=== PATIENT | female | born 1950 | race Caucasian/White ===

== ENCOUNTER → 2017-12-23 12:39 | Outpatient (CLI) | payer MEDICARE, OTHER, SELFPAY ==
--- NOTE | 2017-12-23 12:42 | HPBI_ITS ---
MAMMOGRAPHY - UNILATERAL SCREENING: RIGHT BREAST REASON FOR EXAM: Female, 67 years old. Routine annual screening examination (unilateral). PERTINENT HISTORY: Personal history of breast cancer. Prior left mastectomy with radiation and chemotherapy. TECHNIQUE: Digital unilateral breast peter (3D mammographic acquisition) in the CC and MLO projections. 2-D mediolateral oblique (MLO) and craniocaudad (CC) views of both breasts were obtained. CAD: Full Field Digital Mammography with Computer Added Detection was performed. COMPARISON: Comparison is made with prior study dated October 29, 2016 and September 20, 2015. FINDINGS: Breast Composition: There are scattered areas of fibroglandular density. There are no dominant masses or suspicious calcifications. No other significant abnormalities are identified. There has been no significant change since the prior study. [facility]/UNILAT RT SCRN W/CAD IMPRESSION: Stable unilateral screening mammogram. Yearly follow-up mammogram recommended. (A) ASSESSMENT CATEGORY: BIRADS Category 1: Negative. A letter regarding these results will be sent to the patient by the facility within 30 days. Approximately 10% of breast cancers are not detected by mammography. A normal mammogram should not delay biopsy of a clinically suspicious abnormality. [id number] Electronically Signed: Hakeem Garcia MD at 16:01 EDT Tel [phone], Service support ,
--- NOTE | 2017-12-23 12:45 | HPBD_ITS ---
STUDY: DUAL ENERGY X-RAY ABSORPTIOMETRY / DXA REASON FOR EXAM: Female, 67 years old. The patient is postmenopausal. History of breast cancer. Loss of height of 2 1/2 inches. TECHNIQUE: Bone Mineral Density (BMD) measurements of lumbar spine and bilateral hips were obtained. COMPARISON: Comparison is made with prior examination dated August 28, 2014. FINDINGS: Lumbar Spine (L1-L4): g/cm2 (0.926) / T-score (-2.0) / Z-score (-0.4) Findings are suggestive of osteopenia with a moderate fracture risk. Left Femur Total: g/cm2 (0.826) / T-score (-1.4) / Z-score (-0.2) Left Femoral Neck: g/cm2 (0.803) / T-score (-1.7) / Z-score (-0.2) Right Femur Total: g/cm2 (0.845) / T-score (-1.3) / Z-score (0.0) Right Femoral Neck: g/cm2 (0.913) / T-score (-0.9) / Z-score (0.6) The T-Scores on the most recent prior examination were: Lumbar Spine (L1-L4): There has been worsening of bone density since the previous examination. Left Femur Total: which represents an improvement of 0.7%. Right Femur Total: which represents an improvement of 0.5%. [facility]/Dexa Bone Density Study (HP) IMPRESSION: The patient is considered osteopenic as outlined below according to World Kit Organization (WHO) criteria with a moderate fracture risk. There has been improvement of bone density since the previous examination. Reference Information: The T-score is the number of standard deviations above or below the standard which is normal for young adults at their peak bone mineral density. The World Health Organization (WHO) interprets the T-scores as follows: Above -1 Normal bone density Between -1 and -2.5 Osteopenia Equal to / or below -2.5 Osteoporosis As a practical clinical guideline, osteopenia may be graded as follows: Mild -1 through -1.5 Moderate -1.6 through -2.0 Severe -2.1 through -2.4 The Z-score is the number of standard deviations above or below age-matched controls. A Z-score of less than -1.5 would be considered abnormal. References: 1. NIH Osteoporosis and Related Bone Diseases http://www.osteo.org 2. International Society for Clinical Densitometry http://www.iscd.org 3. National Osteoporosis Foundation http://www.nof.org Electronically Signed: Hakeem Garcia MD at 13:23 EDT Tel [phone], Service support ,
== END ==
PROVIDERS: Family Provider Student in an Organized Health Care Education/Training Program; PCP Student in an Organized Health Care Education/Training Program; Visit Provider Student in an Organized Health Care Education/Training Program
DX: M85.80 Other specified disorders of bone density and structure, unspecified site (principal); M89.9 Disorder of bone, unspecified; M94.9 Disorder of cartilage, unspecified; Z12.31 Encounter for screening mammogram for malignant neoplasm of breast
CPT/HCPCS: 77061; 77067; 77080; G0279

== ENCOUNTER → 2018-04-04 13:13 | Outpatient (CLI) | payer MEDICARE, OTHER, SELFPAY | PROVIDERS: Family Provider Student in an Organized Health Care Education/Training Program; PCP Student in an Organized Health Care Education/Training Program; Visit Provider Nurse Practitioner Adult Health | DX: R30.0 Dysuria (principal) | CPT/HCPCS: 87077; 87086; 87088; 87186 ==

== ENCOUNTER → 2019-01-13 13:08 | Outpatient (CLI) | payer MEDICARE, OTHER, SELFPAY ==
--- NOTE | 2019-01-13 13:13 | BI_ITS ---
MAMMOGRAPHY - UNILATERAL DIAGNOSTIC: RIGHT BREAST REASON FOR EXAM: Female, 68 years old. Prior left mastectomy. PERTINENT HISTORY: Personal history of breast cancer. TECHNIQUE: Digital unilateral breast peter (3D mammographic acquisition) in the CC and MLO projections. 2-D mediolateral oblique (MLO) and craniocaudad (CC) views of both breasts were obtained. CAD: Full Field Digital Mammography with Computer Added Detection was performed. COMPARISON: Comparison is made with prior study December 23, 2017 and October 29 FINDINGS: Breast Composition: There are scattered areas of fibroglandular density. There are no dominant masses or suspicious calcifications. No other significant abnormalities are identified. There has been no significant change since the prior study. BI/UNILAT RT SCRN W/CAD IMPRESSION: Stable unilateral diagnostic mammogram. One year follow-up mammogram recommended. (A) ASSESSMENT CATEGORY: BIRADS Category 1: Negative. A letter regarding these results will be sent to the patient by the facility within 30 days. Approximately 10% of breast cancers are not detected by mammography. A normal mammogram should not delay biopsy of a clinically suspicious abnormality. Electronically Signed: Hakeem Garcia, at 15:49 EDT , Service support ,
== END ==
PROVIDERS: Family Provider Student in an Organized Health Care Education/Training Program; PCP Student in an Organized Health Care Education/Training Program; Referring Provider Student in an Organized Health Care Education/Training Program; Visit Provider Student in an Organized Health Care Education/Training Program
DX: Z12.31 Encounter for screening mammogram for malignant neoplasm of breast (principal)
CPT/HCPCS: 77061; 77067; G0279

== ENCOUNTER → 2019-02-09 | Outpatient (CLI) | payer MEDICARE, OTHER, SELFPAY | END | disposition home or self-care (01) | LOC: LABSPEC 17:07 | PROVIDERS: Family Provider Student in an Organized Health Care Education/Training Program; PCP Student in an Organized Health Care Education/Training Program; Referring Provider Nurse Practitioner Adult Health; Visit Provider Nurse Practitioner Adult Health | DX: R82.998 Other abnormal findings in urine (principal) | CPT/HCPCS: 87077; 87086; 87088; 87186 ==

== ENCOUNTER → 2020-06-07 11:39 | Outpatient (CLI) | payer MEDICARE, OTHER, SELFPAY ==
--- NOTE | 2020-06-07 11:50 | BI_ITS ---
MAMMOGRAPHY - UNILATERAL SCREENING: RIGHT BREAST REASON FOR EXAM: Female, 70 years old. Routine annual screening examination (unilateral). PERTINENT HISTORY: Personal history of breast cancer. Prior left mastectomy. Prior right stereotactic breast biopsy. TECHNIQUE: Digital unilateral breast chapo (3D mammographic acquisition) in the CC and MLO projections. 2-D mediolateral oblique (MLO) and craniocaudad (CC) views of both breasts were obtained. CAD: Full Field Digital Mammography with Computer Added Detection was performed. COMPARISON: Comparison is made with prior study dated 01/13/2019 and 12/23/2017. FINDINGS: Breast Composition: There are scattered areas of fibroglandular density. There are no dominant masses or suspicious calcifications. No other significant abnormalities are identified. There has been no significant change since the prior study. BI/SCREEN MAMM (CAD) W/CHAPO UNI R IMPRESSION: Stable unilateral screening mammogram. Yearly follow-up mammogram recommended. (A) ASSESSMENT CATEGORY: BIRADS Category 1: Negative. A letter regarding these results will be sent to the patient by the facility within 30 days. Approximately 10% of breast cancers are not detected by mammography. A normal mammogram should not delay biopsy of a clinically suspicious abnormality. [id number] Electronically Signed: Hakeem Garcia, at 12:59 EDT , Service support ,
== END ==
PROVIDERS: PCP Student in an Organized Health Care Education/Training Program; Referring Provider Student in an Organized Health Care Education/Training Program; Visit Provider Student in an Organized Health Care Education/Training Program
DX: Z12.31 Encounter for screening mammogram for malignant neoplasm of breast (principal)
CPT/HCPCS: 77063; 77067

== ENCOUNTER 2020-10-08 11:30 | Outpatient (RCR) | payer MEDICARE, OTHER, SELFPAY ==
--- NOTE | 2020-08-27 11:55 | HP.PTEVAL ---
Patient's Visit Information HOLDEN WHITE is a 70 year old F referred to Physical Therapy by Dr. Shashi Serrano MD with a diagnosis of Unilateral primary L knee OA. Date of Evaluation: 08/27/20 Physical Therapist: Greg Liu DPT - Visit Plan Frequency: 1x/Week Duration: 6 Weeks Plan: Work on inc L knee ROM to WNL. LLE strengthening focusing on L knee. Work on stair negotiation as anastasia by pt. - Subjective Pt presents this date for prehab eval of L knee OA. Has been dealing w/ L john ahn since 2003 when she had it arthroscopically cleaned out. Started receiving cortisone shots about 2-3 years ago and believed they helped reduce pain initially but does not seem to be helping much anymore. Pain is worst when going down steps and kneeling. Sitting and rest makes the pain better. Pain does not wake her up at night. States she also has a history of back issues. Tries to be active around the house but is limited by her pain. Has one flight of stairs to her basement w/ BHR that she would like to be able to negotiate, would also like to return to walking regularly. Has 2 BEBETO with RHR. Does not have a follow-up scheduled with her doctor, is supposed to try PT first and then schedule with her doctor. - Pain L knee Pain Intensity (Out of 10): 2 Pain Intensity Range: 2, 8 - Objective POSTURE: Forward head, rounded shoulders, inc thoracic kyphosis. PALPATION: Tenderness noted generally along L knee joint line. ROM: L knee 0-6-118, R knee 0-2-125 deg. Firm end feels. L hip flex 105, ext 12 deg. R hip flex 102, ext 4 deg. MMT: L knee flex 37.1 lbs, ext 34.7 lbs. R knee flex 35.0 lbs, ext 45.2 lbs. L hip flex 36.8 lbs, ext 24.5 lbs. R hip flex 32.9 lbs, ext 29.3 lbs. NEURO: Sensation to light touch intact. DTRs not tested. GAIT: Displays dec B step length and forward trunk. No other deviations noted. Negotiated 1 flight of stairs utilizing R HR and reciprocal pattern. Notable weight shifting off of LLE when descending. Reported not having pain with stair negotiation this date, but states it usually hurts. TUG time: 10.8 sec. EDEMA: Midpatellar girth 16.5 inches. 6 inches suprapatellar girth 20 inches. WOMAC score: 47/96 - Goals Goal 1:: LTG: Pt to be I w/ HEP. Goal Time Frame: 4-6 Weeks Goal 2:: LTG: Pt will display inc L knee ROM to 0-0-120. Goal Time Frame: 4-6 Weeks Goal 3:: STG: Pt will report having a dec in pain while descending stairs at home from 05/20 to 4-6. Goal Time Frame: 2-4 Weeks Goal 4:: LTG: Pt will report having a dec in pain while descending stairs at home from 05/20 to 0-11/20. Goal Time Frame: 4-6 Weeks Goal 5:: LTG: Pt will display inc L knee strength equal to R knee. Goal Time Frame: 4-6 Weeks Goal 6:: STG: Pt will display inc L knee strength by 5 lbs as measured by dynamometer. Goal Time Frame: 2-4 Weeks - Rehabilitation Potential Physical Therapy Diagnosis: S/s consistent w/ L knee OA prehab. Pt displays inc L knee pain, dec L knee ROM, dec L knee strength, and dec ability to safely perform gait activities. PT intervention indicated to address stated deficits and inc L knee ROM and strength, inc ability to safely perform gait activities, and facilitate a dec in pain status. Rehabilitation Potential: Good - Anticipated Interventions Patient/Client Instruction: Educate patient on: Condition, Plan of Care, Risk Factors, Benefits of Fitness Program For the Purpose of:: To improve safety, To improve health and function, To foster healthy habits, To improve self management, To prevent re-injury Therapeutic Exercise to Include: Strength training, Endurance training, Balance training, Flexibilty training, Gait and locomotor training, Active ROM For the Purpose of:: To decrease pain, To decrease swelling/inflammation, To increase ROM, To improve muscle performance and motor function, To increase tolerance to activity/condition/position, To improve ability of physical actions for home/community/work/leisure, To improve gait and locomotor functions, To increase flexibility/ROM IF ES: Yes Cryotherapy (ice pack, ice massage): Yes Thermo therapy (hot pack): Yes Ultrasound (thermal/non thermal): Yes For the Purpose of:: To decrease pain, To decrease swelling/inflammation Thank you for the opportunity to evaluate your patient. For Medicare and Medicare HMO plans, please review the plan of care and approve it. It will need to be FAXED BACK to us at [phone] for Medicare purposes. For Medicare only, by signing this I certify the plan of care. Please let me know if there are questions or concerns regarding this plan of care. Physician Signature: Date:
== END 2020-10-08 19:00 | disposition home or self-care (01) ==
LOC: PT 11:30
PROVIDERS: PCP Student in an Organized Health Care Education/Training Program; Referring Provider Orthopaedic Surgery; Visit Provider Orthopaedic Surgery
DX: M17.12 Unilateral primary osteoarthritis, left knee (principal)
CPT/HCPCS: 97110; 97161

== ENCOUNTER 2021-05-27 11:30 | Outpatient (RCR) | payer MEDICARE, OTHER, SELFPAY ==
--- NOTE | 2021-02-28 15:43 | HP.PTEVAL ---
Patient's Visit Information HOLDEN WHITE is a 70 year old F referred to Physical Therapy by Dr. Shashi Serrano MD with a diagnosis of L TKA. Date of Evaluation: 02/28/21 Physical Therapist: Colt Bello, PT, ATC - Visit Plan Frequency: 2-3x /Week Duration: 4-6 Weeks Plan: L knee PROM/mobs, stretching and strengthening, balance and proprio, core stab, nustep, and HEP - Subjective DOS: 02/21/21. L TKA. Pt reports she had L knee pain for 14-15 years. Pt reports she had cortisone injections throughout that span to aid with the pain. Pt reports her quality of life became poor as she was unable to negotiate stairs or walk for a long time. Pt reports she is still in a lot of pain, but it is getting better. Pt reports sleep difficulty secondary to pain. Pt reports her toes get tingly every now and then, but no other tingling or numbness in L LE. Pt reports she is retired at this time. Pt reports she likes to go on walks, but cant at this time secondary to pain and weakness. Pt reports she has been performing HEP since surgery. 6/10 pain at rest and at worst - Pain L TKA Pain Intensity (Out of 10): 6 Pain Intensity Range: 6 - Objective Neuro: B LE sensation WNL to light touch. ROM: Lknee 0-12-85, R knee 0-117. MMT: R knee flex= 24, ext= 19; L knee flex= 11.9, ext= 7.5. Gait: Pt ambulates slow cadance and WW. TU - Goals Goal 1:: Decrease L knee pain x 50% to aid with sleep. Goal Time Frame: 4-6 Weeks Goal 2:: Increase L knee strength x 1 grade to aid with stair negotiation Goal Time Frame: 4-6 Weeks Goal 3:: Increase L knee ROM x 25 degrees to aid with restoring a more normalised gait pattern Goal Time Frame: 4-6 Weeks Goal 4:: I with HEP Goal Time Frame: 4-6 Weeks - Rehabilitation Potential Physical Therapy Diagnosis: L knee pain, weakness, and limited ROM secondary to L TKA Rehabilitation Potential: Good - Anticipated Interventions Patient/Client Instruction: Educate patient on: Condition, Plan of Care For the Purpose of:: To improve self management Therapeutic Exercise to Include: Strength training, Endurance training, Balance training, Flexibilty training, Gait and locomotor training, Passive ROM, Active ROM, Dynamic Lumbar Stabilization For the Purpose of:: To decrease pain, To increase ROM, To improve muscle performance and motor function Cryotherapy (ice pack, ice massage): Yes For the Purpose of:: To decrease pain Thank you for the opportunity to evaluate your patient. For Medicare and Medicare HMO plans, please review the plan of care and approve it. It will need to be FAXED BACK to us at [phone] for Medicare purposes. For Medicare only, by signing this I certify the plan of care. Please let me know if there are questions or concerns regarding this plan of care. Physician Signature: Date:
--- NOTE | 2021-05-27 15:05 | HP.PTDCSUM ---
It has been my pleasure to treat HOLDEN WHITE referred by Dr. Shashi Serrano MD, with the diagnosis of L TKA for a total of 21 visit(s). Discharge Date: Please see the following information for a summary of their discharge status. Subjective: Pt reports she still has difficulty with donning socks and stair negotiation L TKA Pain Intensity (Out of 10): 0 % Improvement: 95 Objective/Function: L knee pain: 0/10. L knee ROM: 0-5-105. L knee MMT: L knee flex= 22 #F, ext= 23#F. TUG 11.23. I with HEP. Rx goals achieved Goal 1:: Decrease L knee pain x 50% to aid with sleep. Goal Progress: Goal Met Goal 2:: Increase L knee strength x 1 grade to aid with stair negotiation Goal Progress: Goal Met Goal 3:: Increase L knee ROM x 25 degrees to aid with restoring a more normalised gait pattern Goal Progress: Goal Met Goal 4:: I with HEP Goal Progress: Goal Met Plan: Discharge If there are questions or concerns regarding this patient's physical therapy, please feel free to call me at [phone]. Thank you for the referral of this patient. Sincerely, Colt Bello, PT, ATC Balance/Gait/Functional tests - Balance/Special Test Scores Lower Extremity Functional Score: 54
== END 2021-05-27 19:00 | disposition home or self-care (01) ==
LOC: PT 11:30
PROVIDERS: PCP Student in an Organized Health Care Education/Training Program; Referring Provider Orthopaedic Surgery; Visit Provider Orthopaedic Surgery
DX: M17.12 Unilateral primary osteoarthritis, left knee (principal)
CPT/HCPCS: 97110; 97140; 97161; 97164

== ENCOUNTER → 2021-06-24 11:09 | Outpatient (CLI) | payer MEDICARE, OTHER, SELFPAY ==
--- NOTE | 2021-06-24 11:11 | BI_ITS ---
MAMMOGRAPHY - UNILATERAL SCREENING: RIGHT BREAST REASON FOR EXAM: Female, 71 years old. Routine annual screening examination (unilateral). PERTINENT HISTORY: Personal history of breast cancer. Prior left mastectomy. TECHNIQUE: Digital unilateral breast chapo (3D mammographic acquisition) in the CC and MLO projections. 2-D mediolateral oblique (MLO) and craniocaudad (CC) views of both breasts were obtained. CAD: Full Field Digital Mammography with Computer Added Detection was performed. COMPARISON: Comparison is made with prior examination 06/07/2020 and 01/13/2019. FINDINGS: Breast Composition: There are scattered areas of fibroglandular density. There are no dominant masses or suspicious calcifications. No other significant abnormalities are identified. There has been no significant change since the prior study. BI/SCREEN MAMM (CAD) W/CHAPO UNI R IMPRESSION: Stable unilateral screening mammogram. Yearly follow-up mammogram recommended. (A) ASSESSMENT CATEGORY: BIRADS Category 1: Negative. A letter regarding these results will be sent to the patient by the facility within 30 days. Approximately 10% of breast cancers are not detected by mammography. A normal mammogram should not delay biopsy of a clinically suspicious abnormality. [id number] Electronically Signed: Hakeem Garcia MD at 12:55 EDT , Service support ,
== END ==
PROVIDERS: PCP Student in an Organized Health Care Education/Training Program; Referring Provider Student in an Organized Health Care Education/Training Program; Visit Provider Student in an Organized Health Care Education/Training Program
DX: Z12.31 Encounter for screening mammogram for malignant neoplasm of breast (principal)
CPT/HCPCS: 77063; 77067

== ENCOUNTER 2021-08-27 05:44 | Emergency (ER) | payer MEDICARE, OTHER, SELFPAY ==
[2021-08-27 05:45] VITALS: BP 194/103; PULSE 81; RESP 18; TEMP 36.6; O2SAT 98; BMI 33.3
--- NOTE | 2021-08-27 05:54 | EX.ED.DYSGE1 ---
HPI History of Present Illness Chief Complaint: Dizziness Narrative Narrative: 8-year-old female presenting with vertiginous dizziness. She said it started last evening abruptly at about 8 PM while she was working at her craft table. She states it has come in waves over the course of the evening. She describes mild nausea. She has not had any falls. She denies any head injury. She does not have a headache or tinnitus. No visual complaints. PFSH PFSH Home Medications meclizine 25 mg PO BID PRN #30 tab 08/27/21 [Rx Last Taken Unknown] Allergy/AdvReac Type Severity Reaction Status Date / Time nitrofurantoin Allergy Itching Verified 08/27/21 05:45 [From Macrobid] nitrofurantoin Allergy Itching Verified 08/27/21 05:45 macrocrystalline [From Macrobid] ramipril [From Altace] AdvReac Other Verified 08/27/21 05:45 Surgical History Status post left knee replacement Social History Smoking Status: Never smoker ROS ROS ED Constitutional Constitutional ED: Denies chills or fever(s) Eyes Eyes: Reports other Details: Vertiginous dizziness ENT ENT ED: Denies rhinorrhea or sore throat Cardiovascular Cardiovascular: Denies chest pain or palpitations Respiratory/Chest Respiratory/Chest: Denies cough or dyspnea Gastrointestinal Gastrointestinal: Reports nausea; Denies abdominal pain or vomiting Genitourinary Genitourinary ED: Denies dysuria or hematuria Musculoskeletal Musculoskeletal: Denies arthralgias, myalgias or neck pain Integumentary Denies rash Neurologic Neurologic: Denies headache(s) or paresthesias EXAM Physical Exam Const Vital Signs: 08/27/21 05:45 08/27/21 05:49 Temperature 97.8 F Temperature Source Oral Pulse Rate 81 Respiratory Rate 18 Respiratory Effort Normal Respiratory Pattern Normal Blood Pressure 194/103 H Blood Pressure Mean 133 Pulse Ox 98 Oxygen Delivery Method Room Air Positive well nourished General Appearance ED: NAD; Negative for pallor HEENT Reports moist mucous membranes Negative for trauma Eyes PERRL and EOMs intact bilaterally Eyes Narrative: Nystagmus with modified Jm-Hallpike. Vertiginous symptoms reproduced. Resp normal respiratory effort and clear to auscultation bilaterally Cardio regular rate and regular rhythm Neuro oriented x3, CN's II-XII intact bilaterally and no sensory deficits noted Sensorium / Orientation: alert Motor Exam: strength 5/5 throughout Psych mental status grossly normal Skin General Skin Exam: Negative for jaundice or pallor MDM MDM MDM Narrative Medical decision making narrative: Patient is given Phenergan and meclizine. Her symptoms most consistent with benign positional vertigo. Patient will be given meclizine for home. She is given follow-up with ENT. Patient stable for discharge at this time. Impression: 1. Benign positional vertigo Discharge Plan Triage Chief Complaint: Dizziness ED Provider: Shailesh Ramos Dx/Rx/DC Orders Instructions: ED BPV Vertigo Prescriptions: New meclizine 25 mg tablet 25 mg PO BID PRN (Reason: dizziness) Qty: 30 RF: 0 Primary Care Provider: Prashant Wallace Referrals: Zi Beckett MD [STAFF PHYSICIAN] - As Needed Prashant Wallace DO [Primary Care Provider] - Disposition Disposition: Home, Self Care
[2021-08-27] MEDS: proMETHazine 25 MG Tablet PO (05:57)
[2021-08-27] MEDS: Meclizine HCl 25 MG Tablet PO (05:58)
[2021-08-27 06:50] VITALS: BP 175/89; PULSE 88; RESP 16; O2SAT 94
== END 2021-08-27 06:50 | disposition home or self-care (01) ==
LOC: ED 06:35
PROVIDERS: Emergency Provider Student in an Organized Health Care Education/Training Program; PCP Student in an Organized Health Care Education/Training Program
DX: H81.10 Benign paroxysmal vertigo, unspecified ear (principal)
CPT/HCPCS: 99283

== ENCOUNTER → 2022-04-09 | Outpatient (CLI) | payer MEDICARE, OTHER, SELFPAY ==
--- NOTE | 2022-04-09 08:22 | MRI_ITS ---
EXAM: MR Lumbar Spine Without Intravenous Contrast CLINICAL INDICATION: POST LAMINECTOMY SYNDROME TECHNIQUE: Multiplanar and multisequence MR images of the lumbar spine without intravenous contrast. This report was created using [employer] report generation technology. COMPARISON: Lumbar radiograph May 30, 2015 FINDINGS: VERTEBRAE: Unremarkable. Vertebral body heights are preserved. Normal vertebral bodies and posterior elements. Normal alignment. No spondylolisthesis. There is preservation of the normal lumbar lordosis. SPINAL CORD: Unremarkable. Normal position and signal intensity of the conus medullaris. SOFT TISSUES: Unremarkable. DISCS/SPINAL CANAL/NEURAL FORAMINA: L1-2: Disc space narrowing. Disc osteophyte complex and posterior ligamentous redundancy results in mild compression on the thecal sac. Intact neural foramina. Normal spinal canal and lateral recesses. L2-3: Prominent disc space narrowing. Prominent disc protrusion, ligamentous redundancy and facet arthropathy result in moderate spinal stenosis and moderate left and mild right neural foraminal narrowing. L3-4: Prominent disc space narrowing. Vertebral body hypertrophy and facet arthropathy results in severe narrowing of the left foramen. No significant compression of the thecal sac or right neural foramen. Normal spinal canal and lateral recesses. L4-5: Mild disc space narrowing, ligamentous redundancy and facet arthropathy results in moderate spinal stenosis and moderate bilateral neural foraminal narrowing. L5-S1: No significant disc space narrowing or disc herniation. [id number] narrowing of the right neural foramen related to lateral disc bulging and facet arthropathy. Mild narrowing of the left foramen secondary to facet arthropathy. No spinal stenosis. MRI/Spine Lumbar (Routine) IMPRESSION: 1. Multilevel disc degeneration and facet arthropathy. 2. Moderate L2-3 and L4-5 spinal stenosis related to disc protrusion and facet arthropathy. 3. Multilevel neural foraminal narrowing as described. Electronically Signed: Bernard Walker MD at 11:14 EDT ,
== END | disposition home or self-care (01) ==
LOC: MRI 08:04
PROVIDERS: PCP Student in an Organized Health Care Education/Training Program; Visit Provider Anesthesiology Pain Medicine
DX: M96.1 Postlaminectomy syndrome, not elsewhere classified (principal)
CPT/HCPCS: 72148

== ENCOUNTER 2022-06-01 23:54 | Emergency (ER) | payer MEDICARE, OTHER, SELFPAY ==
[2022-06-01 23:55] VITALS: BP 95/67; PULSE 96; RESP 18; TEMP 36.2; O2SAT 94; BMI 32.5
--- NOTE | 2022-06-02 00:25 | EX.ED.DYSGE1 ---
HPI History of Present Illness Chief Complaint: Allergic Reaction Informant: patient Onset/Context/Timing Onset: Today Context: Sudden Onset Timing: Continuous Quality: Pruritic, urticarial Location: Generalized Worsened by: Nothing Relieved by: Nothing Narrative Narrative: Presents with allergic reaction that began tonight. Patient states she has Cipro and Flagyl at home to take in case she starts getting symptoms of diverticulitis. Patient states she felt like she was getting symptoms of her diverticulitis and took a dose of Cipro and Flagyl tonight. Patient states that approximately 15 to 20 minutes after taking the Cipro and Flagyl she started developing itching and hives. Patient denies any difficulty breathing or difficulty swallowing. Patient admits to generalized urticarial rash that is pruritic. Patient states nothing makes it better nothing makes it worse. [facility] Medical History (Updated 06/02/22 @ 02:[address] Dann Cohen DO) Degenerative joint disease (DJD) of lumbar spine Diverticulitis Home Medications meclizine 25 mg tablet 25 mg PO BID PRN dizziness #30 tabs 08/27/21 [Rx Last Taken Unknown] amoxicillin 875 mg-potassium clavulanate 125 mg tablet 875 mg PO Q12H #20 TABLETS 06/02/22 [Rx Last Taken Unknown] prednisone 20 mg tablet 60 mg PO DAILY #15 TABLETS 06/02/22 [Rx Last Taken Unknown] Allergy/AdvReac Type Severity Reaction Status Date / Time nitrofurantoin Allergy Itching Verified 06/01/22 23:59 [From Macrobid] nitrofurantoin Allergy Itching Verified 06/01/22 23:59 macrocrystalline [From Macrobid] ramipril [From Altace] AdvReac Other Verified 06/01/22 23:59 Surgical History Status post left knee replacement Social History Smoking Status: Never smoker ROS ROS ED Constitutional Constitutional ED: Reports chills and subjective; Denies fever(s) Eyes Eyes: Denies blurry vision or change in vision ENT ENT ED: Denies rhinorrhea or sore throat Cardiovascular Cardiovascular: Denies chest pain or palpitations Respiratory/Chest Respiratory/Chest: Denies cough or dyspnea Gastrointestinal Gastrointestinal: Reports nausea; Denies vomiting Genitourinary Genitourinary ED: Denies dysuria or hematuria Musculoskeletal Musculoskeletal: Denies back pain or neck pain Integumentary Reports rash; Denies abscess Neurologic Neurologic: Denies headache(s) or weakness Allergic/Immunologic Allergic/Immunologic ED: Reports urticaria; Denies mouth swelling or tongue swelling EXAM Physical Exam Const Vital Signs: 06/01/22 23:55 06/02/22 02:04 Temperature 97.2 F L Temperature Source Temporal Pulse Rate 96 74 Respiratory Rate 18 17 Blood Pressure 95/67 134/74 H Blood Pressure Mean 76 94 Pulse Ox 94 97 Oxygen Delivery Method Room Air Room Air Positive well nourished and well developed General Appearance ED: well developed and NAD HEENT Reports moist mucous membranes HEENT Narrative: Oral mucosa is pink and moist. Oropharynx is clear. Airway is patent. There is no pharyngeal edema noted. Neck supple and no JVD Resp normal respiratory effort and clear to auscultation bilaterally Cardio regular rate, regular rhythm and no murmurs GI normal to inspection, nondistended, normoactive bowel sounds and non-tender Palpation: soft Extremity normal to inspection General Extremety ED: Negative for edema or tenderness General Extremity: Negative for edema Neuro oriented x3, CN's II-XII intact bilaterally and no sensory deficits noted Sensorium / Orientation: alert Motor Exam: strength 5/5 throughout Psych mental status grossly normal Skin Rashes: rashes noted Generalized patch and macule Generalized coalescing erythematous nontender hives MDM MDM MDM Narrative Medical decision making narrative: Patient was given Solu-Medrol and Benadryl. Patient is feeling better on reevaluation. The urticaria is resolving. Patient had no episodes of throat swelling, difficulty swallowing, or difficulty breathing. Patient was given a prescription for prednisone. Patient was instructed to take Benadryl as needed for any itching. Patient was also given a prescription for Augmentin and was instructed to stop taking the Cipro and Flagyl. Patient was instructed to follow-up with her primary care physician in 5 to 7 days. Patient understood and was agreeable with the plan. All questions were answered. Discharge Plan Triage Chief Complaint: Allergic Reaction ED Provider: Dann Cohen Dx/Rx/DC Orders Clinical Impression: Urticaria due to drug allergy, Diverticulitis Instructions: ED Diverticulitis, ED Hives (Adult) Prescriptions: New amoxicillin-pot clavulanate [amoxicillin-pot clavulanate] 875 MG tablet 875 mg PO Q12H Qty: 20 0RF prednisone 20 MG tablet 60 mg PO DAILY Qty: 15 0RF Discontinued metronidazole 500 mg tablet ciprofloxacin HCl 500 mg tablet No Action meclizine 25 mg tablet 25 mg PO BID PRN (Reason: dizziness) Qty: 30 0RF Primary Care Provider: Prashant Wallace Referrals: Prashant Wallace DO [Primary Care Provider] - 5-7 Days Disposition Disposition: Home, Self Care
[2022-06-02] MEDS: MethylPREDNISolone 125 MG/2 ML Vial 60 MG IV (00:46)
[2022-06-02] MEDS: DiphenhydrAMINE 50 MG/ML Syringe 25 MG IV (00:46)
[2022-06-02 02:04] VITALS: BP 134/74; PULSE 74; RESP 17; O2SAT 97
[2022-06-02 02:44] VITALS: BP 130/73; PULSE 76; RESP 18; O2SAT 96
== END 2022-06-02 02:45 | disposition home or self-care (01) ==
PROVIDERS: Emergency Provider Emergency Medicine; PCP Student in an Organized Health Care Education/Training Program; Visit Provider Emergency Medicine
DX: L50.0 Allergic urticaria (principal); T36.8X5A Adverse effect of other systemic antibiotics, initial encounter; K57.92 Diverticulitis of intestine, part unspecified, without perforation or abscess without bleeding
CPT/HCPCS: 96374; 96375; 99283; A4216

== ENCOUNTER → 2022-07-07 | Outpatient (CLI) | payer MEDICARE, OTHER, SELFPAY ==
--- NOTE | 2022-07-07 10:01 | BI_ITS ---
MAMMOGRAPHY - UNILATERAL SCREENING: RIGHT BREAST REASON FOR EXAM: Female, 72 years old. Routine annual screening examination (unilateral). PERTINENT HISTORY: Personal history of breast cancer. Prior left mastectomy. TECHNIQUE: Digital unilateral breast chapo (3D mammographic acquisition) in the CC and MLO projections. 2-D mediolateral oblique (MLO) and craniocaudad (CC) views of both breasts were obtained. CAD: Full Field Digital Mammography with Computer Added Detection was performed. COMPARISON: Comparison is made with prior study dated 06/24/2021 and 05/30/2020. FINDINGS: Breast Composition: There are scattered areas of fibroglandular density. There are no dominant masses or suspicious calcifications. No other significant abnormalities are identified. There has been no significant change since the prior study. BI/SCREEN MAMM (CAD) W/CHAPO UNI R IMPRESSION: Stable unilateral screening mammogram. Yearly follow-up mammogram recommended. (A) ASSESSMENT CATEGORY: BIRADS Category 2: Benign. A letter regarding these results will be sent to the patient by the facility within 30 days. Approximately 10% of breast cancers are not detected by mammography. A normal mammogram should not delay biopsy of a clinically suspicious abnormality. [id number] Electronically Signed: Hakeem Garcia MD at 11:10 EDT ,
== END | disposition home or self-care (01) ==
LOC: OPBI 09:59
PROVIDERS: PCP Student in an Organized Health Care Education/Training Program; Visit Provider Student in an Organized Health Care Education/Training Program
DX: Z12.31 Encounter for screening mammogram for malignant neoplasm of breast (principal)
CPT/HCPCS: 77063; 77067

== ENCOUNTER → 2023-03-02 | Outpatient (CLI) | payer MEDICARE, OTHER, SELFPAY ==
--- NOTE | 2023-03-02 10:30 | PET_ITS ---
EXAMINATION: FDG PET/CT ? INDICATIONS: 72-year-old female with a history of pulmonary nodularity-mass formation. ? COMPARISON EXAMINATION: None available. ? INDEX LESION SIZE SUV INTERPRETATION Anterior-posterior mediastinum, right upper lobe 10.2 cm, largest 14.1 max Fulfills quantitative criteria for viable neoplasm ? Right periclavicular, retropectoral lymph node basin 49.6 mm, largest 11.3 max Fulfills quantitative criteria for viable neoplasm ? Right peristernal lymph node 8.7 mm 5.4 Fulfills quantitative criteria for viable neoplasm ? Right hemithorax pleural interface 7.9 mm 5.9 Fulfills quantitative criteria for viable neoplasm ? Mid abdominal retroperitoneum 11.8 mm 10.6 Fulfills quantitative criteria for viable neoplasm ? ? TECHNIQUE: Following the intravenous administration of 13.99 mCi of F-18 deoxyglucose via the right antecubital fossa, multiplanar image acquisitions of the head, neck, chest, abdomen and pelvis to the level of the bilateral forefoot, obtained at one-hour post radiopharmaceutical administration contemporaneously interpreted with the current CT of the chest, abdomen and pelvis dated 03/02/2023 via coregistration reveal: ? ? SERUM GLUCOSE LEVEL:? 86 mg/dL? HEIGHT:?? 67 inches WEIGHT:?? 205 pounds ? FINDINGS: ? HEAD/NECK:? There is no evidence of abnormal increased glucose metabolism in the pharyngeal mucosal space, parapharyngeal space, oropharynx, bilateral-lateral and anterior neck, hypopharynx and distribution of the larynx. ? The visualized portion of the cerebral cortical-subcortical structures demonstrate symmetric and preserved glucose metabolism. ? CHEST:? Increased radiopharmaceutical concentration is multifocally apparent in the anterior, middle, and posterior mediastinum and right upper lobe. The calculated maximum standard uptake value is 14.1. The largest metabolic morphologic abnormality exists in the right upper lobe with extension into the middle and anterior mediastinum coalesced in presentation. The maximal axial diameter of the largest metabolic, morphologic abnormality is 10.2 cm. Facilitated FDG is noted in the right periclavicular and retroclavicular regions. The calculated standard uptake value is 11.3. The largest metabolic, morphologic abnormality is 49.6 mm. Facilitated uptake is noted in the right upper anteromedial hemithorax, peristernal in location, with a calculated standard uptake value of 5.4. The maximal axial diameter of the corresponding soft tissue density is 8.7 mm. There is a focus of enhanced tracer uptake noted in the right posterior mid hemithorax at the pleural interface. The calculated standard uptake value is 5.9. The maximal axial diameter of the corresponding soft tissue density is 7.9 mm. ? CT of the chest demonstrates the following anatomic characteristics: Pericardial thickening-effusion is nonglucose avid. A right hemithorax pleural effusion demonstrates no evidence of increased tracer uptake. The left breast appears surgically absent. Atherosclerotic calcification is defined in the thoracic aorta without evidence of dilatation, aneurysm formation. Minimal coronary artery calcification is defined. ? ABDOMEN/PELVIS:? Enhanced radiopharmaceutical concentration is defined in the right mid abdominal retroperitoneum in the distribution of the right lateral aortic lymph node basin. The calculated maximum standard uptake value is 10.6. The maximal axial diameter of the metabolic, morphologic abnormality is 11.8 mm. Normal physiologic distribution of the radiopharmaceutical is identified in the hepatic (4.3) and splenic parenchyma, both renal units, urinary bladder, and visualized intestinal tract. ? CT of the abdomen and pelvis is remarkable for the following: The uterus is surgically absent. Colonic diverticulosis is noted without evidence of diverticulitis. The gallbladder is surgically absent. Cortical cyst formation is defined in the right kidney. Atherosclerotic calcification is defined in the abdominal aorta without evidence of dilatation, aneurysm formation. Pelvic arterial calcification is observed. Right and left inguinal soft tissue densities are ametabolic. ? SKELETAL:? Several foci of increased radiopharmaceutical concentration associated with the anterior, anterolateral chest wall are consistent with trauma-fracture. ? Degenerative changes defined in the thoracic and lumbar spine demonstrate no evidence of increased glucose metabolism. A left knee arthroplasty is defined. There are no sclerotic, mixed sclerotic-lytic, or primarily lytic changes defined in the axial skeletal structures with evidence of increased FDG uptake. ? PET/PET/CT Tumor WB Initial IMPRESSION: 1. ABNORMAL EXAMINATION INDICATIVE OF MALIGNANT-VIABLE NEOPLASM. 2. Increased radiopharmaceutical concentration manifest in the anterior, middle, and posterior mediastinum, right upper lobe fulfills quantitative criteria for viable neoplasm. 3. The right periclavicular, retropectoral, and peristernal hypermetabolic foci fulfill quantitative criteria for malignant transformation. 4. Enhanced radiopharmaceutical concentration manifest in the right hemithorax posteriorly at the pleural interface fulfills quantitative criteria for viable neoplasia. (Jack, et al, Chest 122:1918, 2002). 5. The increased radiopharmaceutical concentration manifest in the mid abdominal retroperitoneum and a single nodular focus involving the right lateral aortic lymph node station fulfills quantitative criteria for viable neoplastic involvement. Electronic Signature Pedro Sosa D.O. Accurate Quantification of SUVs for this report are calculated using the exclusive [employer]. ([place].S. Patent No. [id number] [id number] [phone] [place] patent [phone]). Standardization and correction of the FDG SUV metric via [employer] technology allow for vendor non-specific objective quantitative examination comparison and optimization of the sensitivity and specificity of the FDG PET-CT examination. Electronically Signed: Pedro Sosa, at 7:29 EDT ,
== END | disposition home or self-care (01) ==
LOC: ONC 10:23
PROVIDERS: PCP Student in an Organized Health Care Education/Training Program; Referring Provider Student in an Organized Health Care Education/Training Program; Visit Provider Student in an Organized Health Care Education/Training Program
DX: R91.8 Other nonspecific abnormal finding of lung field (principal)
CPT/HCPCS: 78816; A9552

== ENCOUNTER 2023-05-19 13:07 | Emergency (ER) | payer MEDICARE, OTHER, SELFPAY ==
[2023-05-19 13:09] VITALS: BP 134/64; PULSE 87; RESP 14; TEMP 36.6; O2SAT 98; BMI 31.0
[2023-05-19] MEDS: 0.9% Normal Saline 1,000 ML 1000 ML IV (13:45)
[2023-05-19 13:52] LABS: Absolute Lymphocyte Count 0.14 X10^3/uL (0.83-4.51); Absolute Neutrophil Count 0.4 X10^3/uL (2.0-7.7); Basophil# 0.03 X10^3/uL; Basophil% 3.4 % (0-1); Eosinophil# 0.04 X10^3/uL; Eosinophils% 4.6 % (0-5); Hematocrit 24.8 % (37-47); Hemoglobin 7.9 g/dL (12.0-15.0); Lymphocyte # 0.14 X10^3/ul (0.83-4.51); Lymphocyte % 16.1 % (19-41); Mean Corp Hgb Conc 31.9 g/dL (32-36); Mean Corpuscular Hgb 28.4 pg (27.0-32.0); Mean Corpuscular Volume 89.2 fL (81-99); Mean Platelet Vol. 10.2 fl (6.2-12.0); Monocyte# 0.16 X10^3/uL; Monocyte% 18.4 % (0-10); NRBC Flagged by Analyzer 0 % (0-5); POSITIVE COUNT YES; POSITIVE DIFFERENTIAL YES; POSITIVE MORPHOLOGY YES; Platelet Count 125 K/mm3 (150-450); RBC Distribution Width CV 14.5 % (11.6-14.6); RBC Distribution Width SD 46.5 fl (35.1-43.9); Red Blood Count 2.78 M/mm3 (4.2-5.4); White Blood Count 0.9 K/mm3 (4.4-11.0)
[2023-05-19 14:06] LABS: Anion Gap 7 (5-15); BUN 7 mg/dL (7-18); BUN/Creat Ratio 9.8 RATIO (10-20); Calcium,Total 8.6 mg/dL (8.5-10.1); Chloride 101 mmol/L (98-107); Creatinine, Serum 0.72 mg/dL (0.55-1.02); EST Glomerular Filtration Rate 85 mL/min (>60); Est Glom Filt Rate - Afr Amer 103 mL/min (>60); Estimated Creatinine Clearance 49.45 ml/min; Glucose 115 mg/dL (74-106); Potassium 3.2 mmol/L (3.5-5.1); Sodium Level 137 mmol/L (136-145)
--- NOTE | 2023-05-19 14:18 | EDS_ITS ---
HPI History of Present Illness Chief Complaint: Nausea/Vomiting Informant: patient and family Narrative Narrative: Patient presents to the ED with family after leaving [facility] from her EGD performed by Dr. Lester. Per family reported esophagitis she started on a PPI. She is has history of recent B-cell lymphoma diagnosed [address] Small. Her second treatment chemo was 8 days ago prior treatment 3 weeks ago. She denies fever. She reports decreased appetite occasional nausea intermittent diarrhea when she eats something. No diarrhea today. She denies cough. Denies urinary symptoms. She has been having dysphagia therefore was re ferred for her endoscopy by Dr. Small performed today. Family did not see surgeon pre and post for discussion of her symptoms. Family called the office who referred her to the ED. PFSH PFS Medical History Degenerative joint disease (DJD) of lumbar spine Diverticulitis Hypertension Lymphoma Home Medications meclizine 25 mg tablet 25 mg PO BID PRN dizziness #30 tabs 08/27/21 [Rx Last Taken Unknown] amoxicillin 875 mg-potassium clavulanate 125 mg tablet 875 mg (0.875 x 875-125 mg) PO Q12H #20 TABLETS 06/02/22 [Rx Last Taken Unknown] prednisone 20 mg tablet 60 mg (3 x 20 mg) PO DAILY #15 TABLETS 06/02/22 [Rx Last Taken Unknown] Allergy/AdvReac Type Severity Reaction Status Date / Time ciprofloxacin [From Cipro HC] Allergy Hives Verified 05/19/23 13:09 hydrocortisone Allergy Hives Verified 05/19/23 13:09 [From Cipro HC] nitrofurantoin Allergy Itching Verified 05/19/23 13:09 [From Macrobid] nitrofurantoin Allergy Itching Verified 05/19/23 13:09 macrocrystalline [From Macrobid] ramipril [From Altace] AdvReac Other Verified 05/19/23 13:09 Surgical History H/O mastectomy Hx of cholecystectomy Status post left knee replacement Social History Smoking Status: Never smoker ROS ROS ED Constitutional Constitutional ED: Denies chills, fever(s) or sweats Eyes Eyes: Denies change in vision ENT ENT ED: Denies dysphagia or sore throat Cardiovascular Cardiovascular: Denies chest pain, leg edema, palpitations or racing heartbeat Respiratory/Chest Respiratory/Chest: Denies cough, dyspnea or dyspnea on exertion Gastrointestinal Gastrointestinal: Denies abdominal pain, diarrhea, nausea or vomiting Genitourinary Genitourinary ED: Denies dysuria, hematuria or urinary frequency Musculoskeletal Musculoskeletal: Denies back pain, extremity pain or neck pain Integumentary Denies rash or wounds Neurologic Neurologic: Reports weakness; Denies headache(s) or paresthesias EXAM Physical Exam Const Vital Signs: 05/19/23 13:09 05/19/23 14:40 Temperature 97.8 F Temperature Source Temporal Pulse Rate 87 72 Respiratory Rate 14 16 Blood Pressure 134/64 H 134/71 H Blood Pressure Mean 87 92 Pulse Ox 98 92 Oxygen Delivery Method Room Air Room Air Positive well nourished and well developed General Appearance ED: well developed and NAD HEENT Reports dry mucous membranes HEENT Narrative: Mild dry mucosal membranes normocephalic and atraumatic Mouth ED: Yes dry mucous membranes Mouth: dry mucous membranes Eyes PERRL, EOMs intact bilaterally and conjunctivae normal General Eye ED: Yes normal appearance of both eyes Neck no lymphadenopathy and supple General: Negative for tenderness Chest Wall Chest: Negative for tenderness Resp normal respiratory effort and normal air movement Effort and Inspection: symmetric chest movement; Negative for respiratory distress Cardio regular rate, regular rhythm and no murmurs Peripheral Pulses: pulses 2+ throughout GI normal to inspection, nondistended, normoactive bowel sounds and non-tender Palpation: Negative for guarding or rebound tenderness present Back/Spine no CVA tenderness and no thoracic nor lumbar tenderness Extremity normal to inspection General Extremety ED: Negative for edema or tenderness General Extremity: Negative for edema Neuro oriented x3 and no sensory deficits noted Sensorium / Orientation: awake and alert Skin no rashes or lesions noted and no wounds MDM MDM MDM Narrative Medical decision making narrative: Interventions / MDM: Differential diagnosis: Dehydration, electrolyte abnormalities, neutropenia Diagnosis considered but do not suspect: No fevers for neutropenic fever My EKG interpretation: N/A Imaging independently reviewed and interpreted by myself: N/A External documents reviewed: N/A Test considered but not ordered:N/A ED course: Patient slight dry mucosal membranes vital stable not tachycardic. Decreased p.o. intake. 8 days post chemotherapy. She is status post endoscopy today reported esophagitis with no strictures. IV established for fluids. Labs were drawn. Lab results noted neutropenia white count 0.9 absolute neutrophils of 400. She is afebrile. Potassium 3.2 creatinine 0.72. Oral replacement ordered for potassium. 1425: I did speak with her oncologist Dr. Small with her neutropenia, she was given Neulasta 8 days ago she is afebrile she is clinically improving with IV fluids. Okay with patient being discharged with no antibiotics this time with strict return precautions if fevers develop. I discussed this with patient and family who understands agrees with plan. They are able to manage her at home. All questions were answered. Patient has prescription of Zofran and promethazine at home also reported started on olanzapine at night. Re-evaluation: stable Disposition discussed with patient/family/significant other: Patient and family Case discussed with consulting clinician: Oncology, Dr. Small This note was generated with Caption Data dictation software. It may contain incorrect words, spelling, and punctuation that were not noted in checking the note before signing. Lab Data Attestation: I reviewed the patient's lab results. Labs: Laboratory Results - last 24 hr 05/19/23 13:45 WBC 0.9 L* RBC 2.78 L Hgb 7.9 L Hct 24.8 L MCV 89.2 MCH 28.4 MCHC 31.9 L RDW Std Deviation 46.5 H RDW Coeff of Brooke 14.5 Plt Count 125 L MPV 10.2 Immature Gran % (Auto) 11.500 H Neut % (Auto) 46.0 L Lymph % (Auto) 16.1 L [place] % (Auto) 18.4 H Eos % (Auto) 4.6 Baso % (Auto) 3.4 H Absolute Neuts (auto) 0.4 L Absolute Lymphs (auto) 0.14 L Nucleated RBC % 0 [address] Review May foll Sodium 137 Potassium 3.2 L Chloride 101 Carbon Dioxide 29.0 Anion Gap 7 BUN 7 Creatinine 0.72 Estim Creat Clear Calc 49.45 Est GFR (MDRD) Af Amer 103 Est GFR (MDRD) Non-Af 85 BUN/Creatinine Ratio 9.8 L Glucose 115 H Calcium 8.6 Discharge Plan Triage Chief Complaint: Nausea/Vomiting ED Provider: Christopher Young Dx/Rx/DC Orders Clinical Impression: B-cell lymphoma, Dehydration, Pancytopenia, Chemotherapy induced neutropenia, Hypokalemia Instructions: Neutropenia, Dehydration, Immunocompromised Patients Dc, ED Hypokalemia Prescriptions: No Action meclizine 25 mg tablet 25 mg PO BID PRN (Reason: dizziness) Qty: 30 0RF amoxicillin-pot clavulanate [amoxicillin-pot clavulanate] 875 MG tablet 875 mg PO Q12H Qty: 20 0RF prednisone 20 MG tablet 60 mg PO DAILY Qty: 15 0RF Primary Care Provider: Prashant Wallace Referrals: Prashant Wallace DO [Primary Care Provider] - 3-5 Days Efrain Small DO [Med Staff - Active Staff] - 1-2 Weeks Activity Restrictions/Additional Instructions: Workup notes neutropenia, WBC 0.9. Hemoglobin 7.9 platelets 125. You are afebrile. Creatinine normal at 0.72. Potassium 3.2. Clinical signs of dehydration you are given fluids. Your potassium is replaced. I discussed with Dr. Small, monitor for any fevers for strict return to the ED otherwise follow-up as an outpatient. Continue oral fluids for hydration at home. Take your medications as prescribed. Disposition Disposition: Home, Self Care Discharge Date/Time: 05/19/23 15:19
[2023-05-19 14:19] LABS: Differential Indicated SCAN CRITERIA MET
[2023-05-19 14:40] VITALS: BP 134/71; PULSE 72; RESP 16; O2SAT 92
[2023-05-19] MEDS: Potassium Chloride Oral Soln 20 MEQ/15 ML UDC 40 MEQ PO (14:49)
[2023-05-20 12:53] LABS: Pathologist Review Reviewed
== END 2023-05-19 15:19 | disposition home or self-care (01) ==
PROVIDERS: Emergency Provider Emergency Medicine; PCP Student in an Organized Health Care Education/Training Program; Visit Provider Emergency Medicine
DX: C85.10 Unspecified B-cell lymphoma, unspecified site (principal); D61.818 Other pancytopenia; D70.1 Agranulocytosis secondary to cancer chemotherapy; E87.6 Hypokalemia; E86.0 Dehydration; I10 Essential (primary) hypertension; T45.1X5A Adverse effect of antineoplastic and immunosuppressive drugs, initial encounter; R13.10 Dysphagia, unspecified
CPT/HCPCS: 80048; 85025; 96360; 99283; J7030; A4216

== ENCOUNTER 2023-06-09 07:51 | Outpatient (CLI) | payer MEDICARE, OTHER, SELFPAY ==
[2023-06-09] MEDS: 0.9% NaCl VAD Flush IV ×2 (08:05→12:27)
[2023-06-09 08:07] VITALS: BP 139/72; PULSE 101; RESP 16; TEMP 36.8; O2SAT 91
[2023-06-09 08:29] VITALS: BP 135/64; PULSE 96; RESP 16; TEMP 36.9
[2023-06-09 09:32] VITALS: BP 147/78; PULSE 98; RESP 16; TEMP 37.1; O2SAT 93
[2023-06-09 10:32] VITALS: BP 150/75; PULSE 91; RESP 16; TEMP 36.9
[2023-06-09 11:32] VITALS: BP 147/80; PULSE 91; RESP 16; TEMP 37.2; O2SAT 93
== END 2023-06-09 07:52 | disposition home or self-care (01) ==
LOC: MEDOUTP 07:52
PROVIDERS: PCP Student in an Organized Health Care Education/Training Program; Referring Provider Internal Medicine Hematology & Oncology; Visit Provider Internal Medicine Hematology & Oncology
DX: D64.81 Anemia due to antineoplastic chemotherapy (principal)
CPT/HCPCS: 36430; 86850; 86900; 86901; 86920; 86922; J7040; P9016; A4216

== ENCOUNTER 2023-07-23 14:05 | Emergency (ER) | payer MEDICARE, OTHER, SELFPAY ==
[2023-07-23 14:12] VITALS: BP 90/61; PULSE 97; RESP 18; TEMP 36.2; O2SAT 96; BMI 29.3
[2023-07-23] MEDS: 0.9% Normal Saline (1000mL) 1,000 ML 1000 ML IV (14:57)
[2023-07-23 15:00] LABS: Hematocrit 27.7 % (37-47); Hemoglobin 8.8 g/dL (12.0-15.0); Mean Corp Hgb Conc 31.8 g/dL (32-36); Mean Corpuscular Hgb 31.5 pg (27.0-32.0); Mean Corpuscular Volume 99.3 fL (81-99); Mean Platelet Vol. 10.9 fl (6.2-12.0); POSITIVE COUNT YES; POSITIVE DIFFERENTIAL YES; POSITIVE MORPHOLOGY YES; Platelet Count 61 K/mm3 (150-450); RBC Distribution Width CV 18.6 % (11.6-14.6); RBC Distribution Width SD 68.4 fl (35.1-43.9); Red Blood Count 2.79 M/mm3 (4.2-5.4)
--- NOTE | 2023-07-23 15:04 | EX.ED.DYSGE1 ---
HPI History of Present Illness Chief Complaint: Hypotension Detail of Chief Complaint: Hypotension Informant: patient, spouse/S.O., family and other (Side [place]yer, Dr. Efrain Small) Onset/Context/Timing Onset: Today Context: Sudden Onset Quality: Blood pressure with orthostatic symptoms Location: Upon arising at home Current Severity: Mild Maximum Severity: Severe Worsened by: Standing Relieved by: Supine Associated Symptoms Associated Symptoms: Orthostatic symptoms with dry mouth. Patient had diarrhea yesterday x2 Narrative Narrative: Patient is a 73-year-old woman diagnosed January of this year with stage II non-Hodgkin's lymphoma who had chemotherapy [address] Efrain Small. She states several days after the chemo she has diarrhea. She states her normal blood pressure is 120/70. She does have history of hypercholesterolemia and hypothyroidism. She is also on multiple antihypertensive meds. She denies fever, chills night sweats. She denies headache, visual, ocular auditory symptoms. She does endorse nausea without vomiting. She did endorse 2 loose stools yesterday and 2-3 loose stools a day before. She is also had 2 loose stools today. She has not noted blood or mucus in the stool. She states the watery stool is not black or maroon in color. She is not on an anticoagulant. She denies rash. Prior similar symptoms: No Recent Illness/Hospitalization: Yes [facility] Medical History Degenerative joint disease (DJD) of lumbar spine Diverticulitis Hypertension Lymphoma Home Medications meclizine 25 mg tablet 25 mg PO BID PRN dizziness #30 tabs 08/27/21 [Rx Last Taken Unknown] prednisone 20 mg tablet 60 mg (3 x 20 mg) PO DAILY #15 TABLETS 06/02/22 [Rx Last Taken Unknown] acyclovir 400 mg tablet 400 mg PO Q12H 06/09/23 [History Last Taken Unknown] allopurinol 300 mg tablet 300 mg PO DAILY 06/09/23 [History Last Taken Unknown] amlodipine 10 mg tablet 10 mg PO DAILY 06/09/23 [History Last Taken Unknown] atorvastatin 20 mg tablet 20 mg PO DAILY 06/09/23 [History Last Taken Unknown] levothyroxine 88 mcg tablet 88 mcg PO DAILY 06/09/23 [History Last Taken Unknown] lisinopril 40 mg tablet 40 mg PO DAILY 06/09/23 [History Last Taken Unknown] metoprolol tartrate 50 mg tablet 50 mg PO Q12H 06/09/23 [History Last Taken Unknown] pantoprazole 40 mg tablet,delayed release 40 mg PO DAILY 06/09/23 [History Last Taken Unknown] Allergy/AdvReac Type Severity Reaction Status Date / Time ciprofloxacin [From Cipro HC] Allergy Hives Verified 06/09/23 08:18 hydrocortisone Allergy Hives Verified 06/09/23 08:18 [From Cipro HC] nitrofurantoin Allergy Itching Verified 06/09/23 08:18 [From Macrobid] nitrofurantoin Allergy Itching Verified 06/09/23 08:18 macrocrystalline [From Macrobid] ramipril [From Altace] AdvReac Other Verified 06/09/23 08:18 Surgical History H/O mastectomy Hx of cholecystectomy Status post left knee replacement Social History (Updated 07/23/23 @ 15:[address] Gio Palm MD) household members: spouse Smoking Status: Never smoker substance use type: does not use ROS ROS ED Constitutional Constitutional ED: Reports chills and weight loss; Denies fever(s), subjective or sweats Eyes Eyes: Denies blurry vision, change in vision or diplopia ENT ENT ED: Denies ear pain, rhinorrhea or sore throat Cardiovascular Cardiovascular: Denies chest pain, orthopnea, palpitations, paroxysmal nocturnal dyspnea or racing heartbeat Respiratory/Chest Respiratory/Chest: Denies cough, dyspnea, dyspnea on exertion, orthopnea or paroxysmal nocturnal dyspnea Gastrointestinal Gastrointestinal: Reports diarrhea and nausea; Denies abdominal pain, melena or vomiting Genitourinary Genitourinary ED: Denies dysuria, hematuria or urinary frequency Musculoskeletal Musculoskeletal: Denies arthralgias, back pain, myalgias or neck pain Integumentary Denies abscess, Abrasions, rash or other Neurologic Neurologic: Reports weakness; Denies headache(s) or paresthesias Psychiatric Psychiatric: Denies anxiety or depression Hematologic/Lymphatic Hematologic/Lymphatic: Reports systems reviewed and no addt'l complaints, except as documented EXAM Physical Exam Const Vital Signs: 07/23/23 14:12 07/23/23 15:35 07/23/23 15:37 Temperature 97.2 F L Temperature Source Temporal Pulse Rate 97 72 Respiratory Rate 18 14 Respiratory Effort Normal Respiratory Pattern Normal Blood Pressure 90/61 115/72 Blood Pressure Mean 70 86 Pulse Ox 96 98 Oxygen Delivery Method Room Air Room Air 07/23/23 16:36 Temperature Temperature Source Pulse Rate 91 Respiratory Rate 14 Respiratory Effort Respiratory Pattern Blood Pressure 119/64 Blood Pressure Mean 82 Pulse Ox 95 Oxygen Delivery Method Room Air Positive well nourished and well developed General Appearance ED: well developed and NAD; Negative for cyanotic or diaphoretic HEENT Reports dry mucous membranes HEENT Narrative: Traumatic normocephalic. Ears are normal. Nares are patent. Posterior pharynx out erythema or exudate. Uvula is midline. Mouth ED: Yes dry mucous membranes Mouth: dry mucous membranes Eyes PERRL and EOMs intact bilaterally General Eye ED: Negative for pale conjunctiva or scleral icterus Neck no lymphadenopathy, supple and no JVD Chest Wall inspection of chest normal and palpation of chest normal Resp normal respiratory effort and clear to auscultation bilaterally Cardio regular rate, regular rhythm, S1 normal heart sound, S2 normal heart sound and no murmurs GI normal to inspection, nondistended, normoactive bowel sounds, non-tender and non-distended Back/Spine no CVA tenderness Thoracic Spine / Upper Back: Negative for thoracic spinal tenderness Lumbar Spine / Lower Back: Negative for lumbar spinal tenderness Neuro oriented x3, CN's II-XII intact bilaterally and no sensory deficits noted Sensorium / Orientation: alert Psych mental status grossly normal Skin no rashes or lesions noted, no wounds and skin turgor normal MDM MDM MDM Narrative Medical decision making narrative: Patient is hypotensive. Fluids were ordered. This may represent hypovolemia with low blood pressure. Will obtain CBC to assess H&H and white count. BMP to assess renal function, CO2 anion gap as well as electrolytes and more specifically for hypokalemia since she reports diarrhea in the past several days. History & Record Review Additional record(s) reviewed:: Prior outpatient record and Prior labs Lab Data Attestation: I reviewed the patient's lab results. Lab results narrative: Patient is neutropenic with an absolute neutrophil count of 96. H&H is improved from 2 weeks ago. BUN is 13 with a creatinine of 1.26. Creatinine was 0.71. Glucose is elevated 136 with normal CO2 and anion gap. UA was negative. Labs: Laboratory Results - last 24 hr 07/23/23 07/23/23 14:50 15:39 WBC 0.7 L* RBC 2.79 L Hgb 8.8 L Hct 27.7 L MCV 99.3 H MCH 31.5 MCHC 31.8 L RDW Std Deviation 68.4 H RDW Coeff of Brooke 18.6 H Plt Count 61 L MPV 10.9 Neut % (Auto) Not Reportable Absolute Neuts (auto) 0.3 L Absolute Lymphs (auto) 0.28 L Total Counted 100 Neutrophils % (Manual) 28 L Band Neutrophils % 17 H Lymphocytes % (Manual) 40 Monocytes % (Manual) 13 H Eosinophils % (Manual) 2 Diff Path Review May foll Platelet Estimate MOD DEC Hypochromasia 1+ Anisocytosis 1+ Sodium 138 Potassium 3.6 Chloride 104 Carbon Dioxide 30.0 Anion Gap 4 L BUN 13 Creatinine 1.26 H Estim Creat Clear Calc 39.25 Est GFR (MDRD) Af Amer 54 L Est GFR (MDRD) Non-Af 44 L BUN/Creatinine Ratio 10.3 Glucose 136 H Calcium 8.8 Urine Color Yellow Urine Clarity Clear Urine pH 7.0 Ur Specific [place] 1.005 Urine Protein 30 H Urine Glucose (UA) Normal Urine Ketones Negative Urine Occult Blood 10 H Urine Nitrite Negative Urine Bilirubin Negative Urine Urobilinogen Normal Ur Leukocyte Esterase 25 H Urine RBC 0 SEEN Urine WBC 0-5 SEEN Ur Squamous Epith Cells 0-5 SEEN Calcium Oxalate Crystal RARE Urine Bacteria RARE Urine Mucus 0 SEEN Management Discussion w/another healthcare provider: [employer] (Placed to Dr. Efrain Small. If UA is negative discharged home. And repeat blood work beginning of next week. Case was discussed with Dr. Alex Peng who is on-call.) Treatment and Re-Evaluation :: Seen walking his to the restroom. Her blood pressure is improved. Plan is discharged to home with follow-up blood work next week. Discharge Plan Triage Chief Complaint: Hypotension ED Provider: Gio Palm Dx/Rx/DC Orders Clinical Impression: Orthostatic hypotension, Acute kidney insufficiency, Neutropenia, Stage IIA non Hodgkin's lymphoma Instructions: ED Hypotension, Orthostatic, ED Renal Insufficiency Prescriptions: No Action meclizine 25 mg tablet 25 mg PO BID PRN (Reason: dizziness) Qty: 30 0RF prednisone 20 MG tablet 60 mg PO DAILY Qty: 15 0RF Patient Comments: takes during treatment week acyclovir 400 mg tablet 400 mg PO Q12H allopurinol 300 mg tablet 300 mg PO DAILY amlodipine 10 mg tablet 10 mg PO DAILY Patient Comments: TAKE 1 TABLET BY MOUTH ONCE DAILY atorvastatin 20 mg tablet 20 mg PO DAILY levothyroxine 88 mcg tablet 88 mcg PO DAILY Patient Comments: TAKE 1 TABLET BY MOUTH ONCE DAILY FOR 6 DAYS A WEEK AND 2 TABS 1 DAY A WEEK lisinopril 40 mg tablet 40 mg PO DAILY metoprolol tartrate 50 mg tablet 50 mg PO Q12H Patient Comments: TAKE 1 TABLET BY MOUTH TWICE DAILY pantoprazole 40 mg tablet,delayed release (DR/EC) 40 mg PO DAILY Primary Care Provider: Prashant Wallace Referrals: Prashant Wallace DO [Primary Care Provider] - Efrain Small DO [Med Staff - Active Staff] - 3-5 Days Disposition Disposition: Home, Self Care
[2023-07-23 15:20] LABS: Anion Gap 4 (5-15); BUN 13 mg/dL (7-18); BUN/Creat Ratio 10.3 RATIO (10-20); Calcium,Total 8.8 mg/dL (8.5-10.1); Chloride 104 mmol/L (98-107); Creatinine, Serum 1.26 mg/dL (0.55-1.02); EST Glomerular Filtration Rate 44 mL/min (>60); Est Glom Filt Rate - Afr Amer 54 mL/min (>60); Estimated Creatinine Clearance 39.25 ml/min; Glucose 136 mg/dL (74-106); Potassium 3.6 mmol/L (3.5-5.1); Sodium Level 138 mmol/L (136-145)
[2023-07-23 15:24] LABS: Differential Indicated MANUAL DIFF
[2023-07-23 15:25] LABS: White Blood Count 0.7 K/mm3 (4.4-11.0)
[2023-07-23 15:36] LABS: Eosinophil 2 % (0-5); Lymphocyte 40 % (19-41); Monocyte 13 % (0-10); Neutrophil-Band 17 % (0-5); Neutrophil-Segmented 28 % (47-70); Total Cells Counted 100 (MANUAL DIFF)
[2023-07-23 15:37] VITALS: BP 115/72; PULSE 72; RESP 14; O2SAT 98
[2023-07-23 15:38] LABS: Anisocytosis 1+; Hypochromasia 1+
[2023-07-23 15:39] LABS: Platelet Estimate MOD DEC (ADEQ)
[2023-07-23 15:41] LABS: Absolute Lymphocyte Count 0.28 X10^3/uL (0.83-4.51); Absolute Neutrophil Count 0.3 X10^3/uL (2.0-7.7)
[2023-07-23 15:51] LABS: Mucous, Urine 0 SEEN /hpf (<or=2+); Red Blood Cells-Urine 0 SEEN /hpf (0-5)
[2023-07-23 16:00] LABS: Color, Urine Yellow (Yellow); Glucose, Dipstick Normal (Normal); Ketone-Dipstick Negative (Negative); Leukocyte Esterase-Dipstick 25 /ul (Negative); Nitrite-Dipstick Negative (Negative); Occult Blood-Urine 10 /ul (Negative); Protein-Dipstick 30 mg/dl (Negative); Specific Gravity, Urine 1.005 (1.002-1.030); Urine Bilirubin Dipstick Negative (Negative); Urine Clarity Clear (Clear); Urine Urobilinogen Normal (Normal)
[2023-07-23 16:11] LABS: Bacteria RARE /hpf (None Seen); Calcium Oxalate Crystals Ur RARE /hpf (<or=2+); Squamous Epithelial Cells - UA 0-5 SEEN /hpf (5-10); White Blood Cells 0-5 SEEN /hpf (0-5)
[2023-07-23 16:36] VITALS: BP 119/64; PULSE 91; RESP 14; O2SAT 95
[2023-07-23 17:10] VITALS: BP 128/69
[2023-07-27 09:47] LABS: Pathologist Review Reviewed
== END 2023-07-23 17:10 | disposition home or self-care (01) ==
PROVIDERS: Emergency Provider Emergency Medicine; PCP Student in an Organized Health Care Education/Training Program; Visit Provider Emergency Medicine
DX: I95.1 Orthostatic hypotension (principal); C85.90 Non-Hodgkin lymphoma, unspecified, unspecified site; D70.9 Neutropenia, unspecified; N28.9 Disorder of kidney and ureter, unspecified; E78.00 Pure hypercholesterolemia, unspecified; I10 Essential (primary) hypertension; Z92.21 Personal history of antineoplastic chemotherapy; E03.9 Hypothyroidism, unspecified; Z79.899 Other long term (current) drug therapy; Z90.49 Acquired absence of other specified parts of digestive tract; Z90.10 Acquired absence of unspecified breast and nipple; Z96.652 Presence of left artificial knee joint
CPT/HCPCS: 36591; 80048; 81001; 85025; 96360; 96361; 99283; J7030; A4216

== ENCOUNTER → 2023-08-17 | Outpatient (CLI) | payer MEDICARE, OTHER, SELFPAY ==
--- NOTE | 2023-08-17 09:00 | PET_ITS ---
EXAMINATION: FDG PET/CT ? INDICATIONS: 73-year-old female with a history of lymphoma, presenting for restaging examination. ? COMPARISON EXAMINATION: FDG-PET CT study dated 03/02/2023. ? TECHNIQUE: Following the intravenous administration of 13.91 mCi of F-18 deoxyglucose via the right hand, multiplanar image acquisitions of the head, neck, chest, abdomen and pelvis to the level of the midthigh, obtained at one-hour post radiopharmaceutical administration contemporaneously interpreted with the current CT of the chest, abdomen and pelvis dated 08/17/2023 and prior FDG-PET CT study dated 03/02/2023 via coregistration reveal: ? SERUM GLUCOSE LEVEL:? 133 mg/dL? HEIGHT:?? 67 inches WEIGHT:?? 183 pounds ? FINDINGS: ? HEAD/NECK:? There is no evidence of abnormal increased glucose metabolism in the pharyngeal mucosal space, parapharyngeal space, oropharynx, bilateral-lateral and anterior neck, hypopharynx and distribution of the larynx. ? The visualized portion of the cerebral cortical-subcortical structures demonstrate symmetric and preserved glucose metabolism. ? CHEST:? There is no quantitative scintigraphic evidence of abnormal increased glucose metabolism within the context of the bilateral hemithorax pulmonary parenchyma, right and left hemithorax at the pleural interface, mediastinal structures, and left-right thoracic perihilum. The previously identified hypermetabolic foci noted in the anterior posterior mediastinum, right upper lobe, and right periclavicular and retropectoral lymph nodes, the right peristernal lymph node, the right hemithorax at the pleural interface, and midabdominal retroperitoneum are not visualized on the current examination. ? CT of the chest demonstrates the following anatomic characteristics: On review of CT of the chest, there is no definitive interval change compared to the study dated 03/02/2023.? ? ABDOMEN/PELVIS:? Normal physiologic distribution of the radiopharmaceutical is identified in the hepatic and splenic parenchyma, both renal units, urinary bladder, and visualized intestinal tract. The previously identified abdominal retroperitoneal hypermetabolic focus is not apparent on the current examination. Diffuse intestinal tract is identified in all four quadrants of the abdomen and pelvis. ? CT of the abdomen and pelvis is remarkable for the following: On review of CT of the abdomen/pelvis, there is no definitive interval change compared to the study dated 03/02/2023. ? SKELETAL:? There is no evidence of quantitatively significant enhanced glucose metabolism on meticulous inspection of the appendicular and axial skeletal structures. ? Degenerative changes defined in the thoracic and lumbar spine demonstrate no evidence of increased glucose metabolism. There are no sclerotic, mixed sclerotic-lytic, or primarily lytic changes defined in the axial skeletal structures with evidence of increased FDG uptake. ? PET/PET/CT Tumor Base -Thigh Subs IMPRESSION: 1. NEGATIVE EXAMINATION. There is no definitive quantitative scintigraphic evidence of recurrent/viable neoplasm. 2. There is interim resolution of all prior defined hypermetabolic foci previously articulated. 3. Overall, compared to the prior FDG-PET CT study dated 03/02/2023, there is current absence of defined viable neoplastic disease with an interim quantitative complete metabolic response relating to all defined hypermetabolic foci. Electronic Signature Pedro Sosa D.O. Accurate Quantification of SUVs and standardized [place] scores specific to lymphoma FDG PET-CT study interpretation for this report are calculated using the exclusive [employer]. ([place]. Patent No. [id number] B2 [phone] [place] patent [phone]). Standardization and correction of the FDG SUV metric via [employer] technology allow for vendor non-specific objective quantitative examination comparison and optimization of the sensitivity and specificity of the FDG PET-CT examination. [email or web address] Electronically Signed: Pedro Sosa DO at 23:44 EST ,
== END | disposition home or self-care (01) ==
LOC: ONC 08:46
PROVIDERS: PCP Student in an Organized Health Care Education/Training Program; Referring Provider Internal Medicine Hematology & Oncology; Visit Provider Internal Medicine Hematology & Oncology
DX: C83.38 Diffuse large B-cell lymphoma, lymph nodes of multiple sites (principal)
CPT/HCPCS: 78815; A9552

== ENCOUNTER → 2025-09-25 | Outpatient (CLI) | payer MEDICARE, OTHER, SELFPAY ==
--- NOTE | 2025-09-25 12:45 | PET_ITS ---
PROCEDURE: PET/CT TUMOR BASE -THIGH SUBS 09/25/2025 REASON FOR EXAM: 75 y/o F with LYMPHOMA TECHNIQUE: Procedure Code: [id number] Modality: PT Procedure: PET/CT TUMOR BASE -THIGH SUBS Following the intravenous administration of radionucleotide, image acquisition on a dedicated PET/CT unit was performed at one hour post injection. A preliminary CT study encompassing the Skull base, neck, chest, abdomen, pelvis, and proximal thighs was performed for purposes of attenuation correction and anatomic localization. The proximal thighs were also included. The patient's blood glucose level was 96 mg/dL (allowable range: 50-180 mg/dL). RADIOPHARMACEUTICAL: 14.9 mCi 18F-FDG (Fluorodeoxyglucose F18) IV was injected into he patient. RADIATION DOSE SUMMARY: Effective Dose: Approximately 7 mSv for a standard whole-body PET scan Organ Doses: Varies by organ, with higher doses typically to the bladder, liver, and brain COMPARISON: COMPARISON FROM CT, PET OR OTHER PERTINENT EXAMS: PET-CT of 08/17/2023.. FINDINGS: Physiologic uptake: There may be expected metabolic uptake within the brain, tongue and floor of the mouth and larynx/vocal cords, heart, mis (many normal individuals have hilar uptake in less than 3 nodes with mildly avid hilar nodes less than 2.7 SUV), liver and spleen, system, and GI tract and symmetric muscle uptake. FDG AVID AND NON-AVID LESIONS. Reported avid SUV values (g/mL*) are maximum SUV. NECK: There are no significant neck abnormalities. CHEST: Chest wall- There are no significant chest wall abnormalities. Axilla- There are no significant axillary abnormalities. Lung parenchyma- There are no significant lung parenchyma abnormalities. Mediastinum- There are no significant hilar or mediastinal adenopathy. Pleura- There are no significant pleural abnormalities. ABDOMEN: Prior cholecystectomy. Stomach- No significant abnormalities. Liver- Right hepatic cyst again noted. No area of hypermetabolic activity is seen. Spleen- No significant abnormalities. Pancrease- No significant abnormalities. Kidneys- No significant abnormalities. Bowel- Normal bowel activity. Spine- No significant abnormalities. PELVIS: Moderate sigmoid and descending colon diverticulosis is noted. Bowel- Normal physiologic bowel activity is identified. Masses- There are no pelvic masses. Bones- Prominent degenerative changes of the spine are seen. With the use of bone window settings, there are no osteolytic or osteoblastic lesions. There are no FDG avid lesions within the visualized portion of the axial skeleton. Numerous areas of increased uptake is seen in the musculature, most likely due to inflammation and/or muscle fiber injury. PET/PET/CT Tumor Base -Thigh Subs IMPRESSION: FDG avid- No significant avid lesions. Other: 1. Numerous areas of increased uptake is seen in the musculature, most likely d ue to inflammation and/or muscle fiber injury. 2. Prior cholecystectomy. 3. Moderate sigmoid and descending colon diverticulosis. 4. Prominent degenerative changes of the spine Please note the low-dose CT scan was performed to facilitate PET image reconstr uction and anatomic localization and does not replace a diagnostic CT. Any diagnostic CT requested and performed at the time of the PET will be reported separately. Reading Location: [place] [id number]
== END | disposition home or self-care (01) ==
LOC: ONC 10:42
PROVIDERS: PCP Student in an Organized Health Care Education/Training Program; Referring Provider Internal Medicine Hematology & Oncology; Visit Provider Internal Medicine Hematology & Oncology
DX: C83.38 Diffuse large B-cell lymphoma, lymph nodes of multiple sites (principal)
CPT/HCPCS: 78815; A9552